=== PATIENT | male | born 1970 | race Caucasian/White ===

== ENCOUNTER 2021-02-15 10:57 | Emergency (ER) | payer OTHER ==
[~2021-02-15] VITALS: Ht 182.9 cm; Wt 100.2 kg
[2021-02-15 11:32] LABS: BASOPHILS % (AUTO) 1 % (0-1); EOSINOPHILS % (AUTO) 0 % (1-7); LYMPHOCYTES % (AUTO) 26 % (22-44); MEAN CORPUSCULAR HEMOGLOBIN 31.4 pg (27.5-34.5); MEAN PLATELET VOLUME 7.1 fL (7.4-10.4); MONOCYTES % (AUTO) 10 % (2-9); NEUTROPHILS % (AUTO) 63 % (42-75); PLATELET COUNT 341 x10^3/uL (130-400); RED BLOOD COUNT 5.46 x10^6/uL (4.38-5.82); RED CELL DISTRIBUTION WIDTH 13.5 % (9.4-14.8)
[2021-02-15 11:41] LABS: ALANINE AMINOTRANSFERASE 31 U/L (12-78); ALBUMIN 4.3 g/dL (3.4-5.0); ANION GAP 8 mmol/L (5-15); CALCIUM 9.4 mg/dL (8.5-10.1); CHLORIDE 111 mmol/L (98-107); CREATININE 0.98 mg/dL (0.7-1.3)
[2021-02-15 11:46] LABS: ALKALINE PHOSPHATASE 59 U/L (45-117); BILIRUBIN,TOTAL 0.7 mg/dL (0.2-1.0); TOTAL PROTEIN 7.7 g/dL (6.4-8.2); TROPONIN I < 0.015 ng/mL (0.000-0.045)
--- NOTE | 2021-02-15 13:02 | NUR ---
TO ROOM AT THIS TIME.
[2021-02-15 13:30] VITALS: BP 142/88
[2021-02-15] MEDS ORDERED: OMEP-110 PO (13:31)
--- NOTE | 2021-02-15 15:02 | NUR ---
Patient/Caregiver given discharge instructions and they have confirmed that they understand the instructions. Patient ambulatory with steady gait. NAD, all questions answered appropriately, denies additional needs at this time. No personal belongings left in room after discharge.
== END 2021-02-15 15:12 | disposition home or self-care (01) ==
LOC: ED 15:08
DX: R06.00 Dyspnea, unspecified (principal); F41.1 Generalized anxiety disorder; R07.89 Other chest pain; K21.9 Gastro-esophageal reflux disease without esophagitis; E11.9 Type 2 diabetes mellitus without complications; Z87.891 Personal history of nicotine dependence
CPT/HCPCS: 36415; 71045; 80053; 83880; 84484; 85025; 85379; 93005; 99285